=== PATIENT | male | born 1970 | race Caucasian/White ===

== ENCOUNTER 2020-11-16 10:40 | Emergency (ER) | payer BC ==
--- NOTE | 2020-11-16 12:19 | RAD REPORT ---
EXAM DESCRIPTION: CT - Abdomen Pelvis W Contrast - 11/16/2020 12:09 pm CLINICAL HISTORY: ABD PAIN COMPARISON: No comparisons TECHNIQUE: Axial [address] imaging of the abdomen and pelvis was performed without IV co ntrast. No oral contrast given All CT scans are performed using dose optimization technique as appropriate and may include automated exposure control or mA/KV adjustment according to patient size. FINDINGS: No suspicious findings in the lung bases. The liver, spleen, and pancreas show no suspicious findings for a non IV contrast study. Gallbladder and biliary tree are also without suspicious finding. No hydronephrosis or suspicious renal mass seen. Isodense masses and pyelonephritis cannot be exclud ed on non IV contrast imaging. No adrenal abnormalities. No bladder abnormalities. No dilated bowel loops or bowel wall thickening. No free air, free fluid or inflammatory stranding. No soft tissue mass or bulky lymphadenopathy. No acute bone finding. Degenerative gas in the L4-5 and L5-S1 disc spaces where there is also posteri or disc bulge and endplate spurring changes. Mild foraminal stenosis present at L4-5. Patient has a 3 centimeter fat only umbilical hernia with a 1.5 centimeter neck. No bowel involvement . No congestion or edema of the herniated fat. Patient also has a 5 centimeter diameter right inguina l hernia filled with fat. There is a small amount of fluid present. No bowel involvement. No abdomin al wall hematoma or mass. IMPRESSION: Right inguinal fat filled hernia 5 cm in diameter. No bowel involvement. Patient has a s mall fat only umbilical hernia 3 cm in size with a 1.5 cm neck. Nonacute findings detailed in the body of the report.
[2020-11-16 12:22] LABS: Absolute Lymphocytes (CBC) 1.4 K/uL (0.7-4.9); Basophils % 1.1 % (0-1.3); Hematocrit 45.7 % (39.6-49.0); Lymphocytes % 25.4 % (15.3-44.8); MPV 10.1 fL (7.6-11.3); RBC Red Blood Cell Count 5.01 M/uL (4.33-5.43)
--- NOTE | 2020-11-16 12:57 | EDPHYS ---
Physician Documentation [facility] Name: Jorge Dos Santos Age: 50 yrs Sex: Male : 1970 Arrival Date: 11/16/2020 Time: 10:44 Bed 23 Private MD: ED Physician Bc Cali HPI: 11/16 12:39 This 50 yrs old Male presents to ER via Ambulatory with complaints of kb Abdominal Pain. 12:39 The patient presents with abdominal pain right lower quadrant. Onset: The kb symptoms/episode began/occurred 5 day(s) ago. The symptoms do not radiate. Associated signs and symptoms: none. The symptoms are described as intermittent. Modifying factors: The symptoms are alleviated by nothing, the symptoms are aggravated by nothing. Severity of pain: At its worst the pain was moderate in the emergency department the pain has resolved. The patient has not experienced similar symptoms in the past. The patient has been recently seen by a physician: Dr. pop with similar presenting complaints, and was sent [facility] Emergency Department for further evaluation. Pt reports right groin/RLQ pain that started Th. Has been intermittent since then worse with straining. Historical: - Allergies: 11:08 No Known Allergies; ll1 - PMHx: 11:08 Hypertension; stage 3 kidney; Hypothyroidism; ll1 - PSHx: 11:08 ankle fx; Tonsillectomy; ll1 - Immunization history:: Flu vaccine is not up to date. - Social history:: Smoking status: Patient denies any tobacco usage or history of. ROS: 12:42 Constitutional: Negative for fever, chills, and weight loss, Cardiovascular: Negative kb for chest pain, palpitations, and edema, Respiratory: Negative for shortness of breath, cough, wheezing, and pleuritic chest pain, : Negative for injury, bleeding, discharge, and swelling, MS/Extremity: Negative for injury and deformity, Skin: Negative for injury, rash, and discoloration, Neuro: Negative for headache, weakness, numbness, tingling, and seizure. 12:42 Abdomen/GI: Positive for abdominal pain, Negative for nausea, vomiting, and diarrhea. Exam: 12:42 Constitutional: This is a well developed, well nourished patient who is awake, alert, kb and in no acute distress. Head/Face: Normocephalic, atraumatic. Respiratory: Respirations even and unlabored. No increased work of breathing, no retractions or nasal flaring. Abdomen/GI: Soft, non-tender. No distention Skin: Warm, dry with normal turgor. Normal color. MS/ Extremity: Pulses equal, no cyanosis. Neurovascular intact. Full, normal range of motion. Neuro: Awake and alert, GCS 15, oriented to person, place, time, and situation. Moves all extremities. Normal gait. Vital Signs: 11:04 BP 129 / 89; Pulse 64; Resp 17; Temp 98.7; Pulse Ox 98% ; Weight 104.33 kg; Height 5 ll1 ft. 10 in. (177.80 cm); Pain 02/20; 11:04 Body Mass Index 33.00 (104.33 kg, 177.80 cm) ll1 MDM: 11:52 Patient medically screened. kb 12:41 Data reviewed: vital signs, nurses notes. Data interpreted: Pulse oximetry: on room air kb is 98 %. Interpretation: normal. Counseling: I had a detailed discussion with the patient and/or guardian regarding: the historical points, exam findings, and any diagnostic results supporting the discharge/admit diagnosis, lab results, radiology results, the need for outpatient follow up, a family practitioner, to return to the emergency department if symptoms worsen or persist or if there are any questions or concerns that arise at home. ED course: Pain resolved at this time. Pt educated on hernias and need for follow up with general surgery for repair on outpatient basis. 11/16 11:49 Order name: Basic Metabolic Panel 11/16 11:49 Order name: CBC with Diff 11/16 11:49 Order name: CT Abd/Pelvis - IV Contrast Only; Complete Time: 12:42 11/16 11:50 Order name: Basic Metabolic Panel; Complete Time: 12:35 EDMS 11/16 11:50 Order name: CBC with Automated Diff; Complete Time: 12:56 EDMS 11/16 12:39 Order name: CREATININE WHOLE BLOOD; Complete Time: 12:39 EDMS 11/16 11:49 Order name: IV Saline Lock; Complete Time: 12:00 ss 11/16 11:49 Order name: Labs collected and sent; Complete Time: 12:00 ss Administered Medications: No medications were administered Disposition: 15:14 Co-signature as Attending Physician, Bc Cali MD. rn Disposition: 11/16/20 12:56 Discharged to Home. Impression: Inguinal hernia. - Condition is Stable. - Discharge Instructions: Inguinal Hernia, Adult, [id number]. - Medication Reconciliation Form, Thank You Letter, Antibiotic Education, Prescription Opioid Use form. - Follow up: Emergency Department; When: As needed; Reason: Worsening of condition. Follow up: Private Physician; When: 2 - 3 days; Reason: Recheck today's complaints, Continuance of care, Re-evaluation by your physician. Signatures: Dispatcher [employer] EDMS Kimberly Garcia, BUILDING TECH-C BUILDING TECH-Ckb Bc Cali MD MD rn Toya Waldrop RN RN Erick Doyle RN RN ll1 Corrections: (The following items were deleted from the chart) 13:04 12:56 11/16/2020 12:56 Discharged to Home. Impression: Inguinal hernia. Condition is ss Stable. Forms are Medication Reconciliation Form, Thank You Letter, Antibiotic Education, Prescription Opioid Use. Follow up: Emergency Department; When: As needed; Reason: Worsening of condition. Follow up: Private Physician; When: 2 - 3 days; Reason: Recheck today's complaints, Continuance of care, Re-evaluation by your physician. kb
--- NOTE | 2020-11-16 12:57 | ER ---
Nurse's Notes [facility] Name: Jorge Dos Santos Age: 50 yrs Sex: Male : 1970 Arrival Date: 11/16/2020 Time: 10:44 Bed 23 Private MD: Diagnosis: Inguinal hernia Presentation: 11/16 11:04 Chief complaint: Patient states: RLQ abd pain, 1 episode on . Today, RLQ pain ll1 has returned and is constant. Sent in by [employer] for r/o appy. Coronavirus screen: Client denies travel out of the [place] in the last 14 days. At this time, the client does not indicate any symptoms associated with coronavirus-19. Ebola Screen: Patient denies travel to an Ebola-affected area in the 21 days before illness onset. Initial Sepsis Screen: Does the patient meet any 2 criteria? No. Patient's initial sepsis screen is negative. Does the patient have a suspected source of infection? Yes: Acute abdominal pain. Risk Assessment: Do you want to hurt yourself or someone else? Patient reports no desire to harm self or others. Onset of symptoms was November 12, 2020. 11:04 Method Of Arrival: Ambulatory ll1 11:04 Acuity: WILIAN 3 ll1 Historical: - Allergies: 11:08 No Known Allergies; ll1 - PMHx: 11:08 Hypertension; stage 3 kidney; Hypothyroidism; ll1 - PSHx: 11:08 ankle fx; Tonsillectomy; ll1 - Immunization history:: Flu vaccine is not up to date. - Social history:: Smoking status: Patient denies any tobacco usage or history of. Screenin:59 Abuse screen: Denies threats or abuse. Denies injuries from another. Nutritional ss screening: No deficits noted. Tuberculosis screening: Never had TB. Fall Risk None identified. Assessment: 11:59 General: Appears uncomfortable, Behavior is calm, cooperative, Denies fever, feeling ss ill, fatigue, chills. Pain: Complains of pain in right lower quadrant Pain radiates to R groin Pain currently is 4 out of 10 on a pain scale. at worst was 9 out of 10 on a pain scale. Quality of pain is described as "pulling" Pain began "It started , but then it went away all weekend and while I was at work today, I was pulling something and it happened again." Is episodic. Neuro: Level of Consciousness is awake, alert, obeys commands, Oriented to person, place, time, situation. Cardiovascular: Capillary refill < 3 seconds is brisk in bilateral fingers. Respiratory: Airway is patent Respiratory effort is even, unlabored, Respiratory pattern is regular, symmetrical. GI: Abdomen is round non-distended, Bowel sounds present X 4 quads. Abd is soft and non tender X 4 quads. Patient currently denies diarrhea, nausea, vomiting. : Denies burning with urination, inability to void. EENT: Nares are clear Oral mucosa is moist. Derm: Skin is intact, is healthy with good turgor, Skin is dry, Skin is pink, warm \\T\\ dry. normal. Musculoskeletal: Circulation, motion, and sensation intact. Range of motion: intact in all extremities, Swelling absent. 12:02 Reassessment: Pt to CT at this time VIA wheelchair. 12:19 Reassessment: Pt back from CT. AWaiting results. Is resting comfortably in bed. ss Respirations even and unlabored. 12:43 Reassessment: Patient appears in no apparent distress at this time. Patient and/or ss family updated on plan of care and expected duration. Pain level reassessed. Patient is alert, oriented x 3, equal unlabored respirations, skin warm/dry/pink. 13:04 Reassessment: Patient appears in no apparent distress at this time. Vital Signs: 11:04 BP 129 / 89; Pulse 64; Resp 17; Temp 98.7; Pulse Ox 98% ; Weight 104.33 kg; Height 5 ll1 ft. 10 in. (177.80 cm); Pain 7/10; 11:04 Body Mass Index 33.00 (104.33 kg, 177.80 cm) ll1 ED Course: 10:44 Patient arrived in ED. mr 11:06 Triage completed. ll1 11:08 Arm band placed on Patient notified of wait time. ll1 11:48 [facility]ly [facility]C [facility] ss 11:52 Bc Cali MD is Attending Physician. kb 11:59 Patient has correct armband on for positive identification. Bed in low position. Call ss light in reach. Side rails up X 1. 12:01 Basic Metabolic Panel Sent. ss 12:01 CBC with Diff Sent. ss 12:01 Inserted saline lock: 20 gauge in right antecubital area, using aseptic technique. ss Blood collected. Patient maintains SpO2 saturation greater than 95% on room air. 12:09 CT Abd/Pelvis - IV Contrast Only In Process Unspecified. EDMS 12:19 Toya Waldrop, RN is Primary Nurse. ss 13:04 No provider procedures requiring assistance completed. IV discontinued, intact, ss bleeding controlled, No redness/swelling at site. Pressure dressing applied. Administered Medications: No medications were administered Outcome: 12:56 Discharge ordered by . kb 13:04 Discharged to home ambulatory. ss 13:04 Condition: improved 13:04 Discharge instructions given to patient, Instructed on discharge instructions, follow up and referral plans. Demonstrated understanding of instructions, follow-up care. 13:04 Patient left the ED. Signatures: Dispatcher [employer] EDTX Kimberly Garcia, MUFFLER TENDER-C MUFFLER TENDER-Eb Kali Bonny mr Toya Waldrop, RN RN Erick Guido RN RN ll1
[2020-11-16 13:21] VITALS: BP 129/89; TEMP 98.7; O2SAT 98
== END 2020-11-16 13:04 | disposition home or self-care (01) ==
LOC: ER 10:40
DX: K40.90 Unilateral inguinal hernia, without obstruction or gangrene, not specified as recurrent (principal); I12.9 Hypertensive chronic kidney disease with stage 1 through stage 4 chronic kidney disease, or unspecified chronic kidney disease; N18.30 Chronic kidney disease, stage 3 unspecified; E03.9 Hypothyroidism, unspecified
CPT/HCPCS: 85025; 80048; 36415; 82565; 74177; 99284; Q9967

== ENCOUNTER 2020-11-20 07:48 | Day surgery (SDC) | payer BC ==
--- NOTE | 2020-11-18 15:43 | RAD REPORT ---
EXAM DESCRIPTION: RAD - Chest Pa And Lat (2 Views) - 11/18/2020 3:25 pm CLINICAL HISTORY: Preop, pending hernia repair COMPARISON: Portable September 2003 2 TECHNIQUE: Frontal and lateral views of the chest were obtained. FINDINGS: The lungs are clear. Interstitial pattern matches comparison. Heart size is normal and ce ntral vasculature is within normal limits. No pleural effusion or pneumothorax seen. No acute bony finding noted. No aortic abnormality. IMPRESSION: No acute cardiopulmonary process. No significant change from comparison study.
--- NOTE | 2020-11-19 08:51 | EKG ---
Test Date: 2020-11-18 Test Time: 14:14:10 Weigher And Mixer: BRENDA MEASUREMENT RESULTS: Intervals: Rate: 61 LA: 204 QRSD: 92 QT: 398 QTc: 400 Clay: P: 53 LA: 204 QRS: 40 T: 26 INTERPRETIVE STATEMENTS: Normal sinus rhythm Normal ECG Compared to ECG 09/21/2013 14:56:23 Junctional rhythm no longer present Electronically Signed On 11-19-20 08:48:42 CDT by Wilberto Burnham
[2020-11-20] MEDS ORDERED: propofoL 200 MG/20 ML VIAL IV ONE (08:18)
[2020-11-20] MEDS ORDERED: MIDAZOLAM HCL 2 MG/2 ML INJ ONE (08:19)
[2020-11-20] MEDS ORDERED: dexAMETHasone 10 MG/ML VIAL ONE (08:19)
[2020-11-20] MEDS ORDERED: LIDOCAINE 2% MPF 5 ML VIAL ONE (08:19)
[2020-11-20] MEDS ORDERED: FENTANYL CITR 100 MCG/2 ML ONE (08:19)
[2020-11-20] MEDS ORDERED: KETOROLAC 30 MG/ML INJ ONE (08:19)
[2020-11-20] MEDS ORDERED: ROCURONIUM 50 MG/5 ML VIAL IV ONE (08:19)
[2020-11-20] MEDS ORDERED: ONDANSETRON 4 MG/2 ML VIAL ONE ×2 (08:20→11:20)
[2020-11-20] MEDS ORDERED: CEFAZOLIN/SWI 1gm 1 GM/10 ML SYR ONE (08:33)
[2020-11-20] MEDS ORDERED: Ringers Lactate 1,000 ML IV ONE ×2 (08:33→10:35)
[2020-11-20] MEDS ORDERED: CISATRACURIUM INJECTION 2 MG/ML (10 ML Vial) IV ONE ×2 (09:10→09:27)
[2020-11-20] MEDS: HYDROMORPHONE HCL 1 MG/ML INJ ONE ×2 (11:14→11:19)
[2020-11-20 11:18] VITALS: O2SAT 100
[2020-11-20] MEDS ORDERED: HYDROCODONE/APAP 7.5/325 MG TAB ONE (12:26)
[2020-11-20 13:32] VITALS: BP 135/99; TEMP 97.4
--- NOTE | 2020-11-20 20:56 | OP ---
Date of Procedure: 11/20/2020 Surgeon: Andrea Velasquez MD Traffic Workforce Representative: SRAVAN Lake. Preoperative Diagnosis: Umbilical hernia and right inguinal hernia. Postoperative Diagnosis: Umbilical hernia and right inguinal hernia. Procedure: Laparoscopic repair of umbilical hernia and repair of right inguinal hernia. Estimated Blood Loss: Minimal. Specimen: Hernia sac contents and cord lipoma. Anesthesia: General. Complications: None. Findings: As above. Disposition: The patient tolerated the procedure in stable condition and taken to Recovery in good g eneral condition. Procedure In Detail: The patient was brought to the OR and placed in supine position. General anest hesia begun. The patient was prepped and draped in the usual sterile fashion. Marcaine 0.5% was inf iltrated locally. A 15-blade was used to make the left lower quadrant incision. Subcutaneous tissue was divided. Fascia was identified and divided. #1 Vicryl stay suture was placed. Peritoneal cavi ty was entered with sharp and blunt dissection. A 12 mm trocar was placed into the peritoneal cavity under direct vision. Pneumoperitoneum was established and then one 5 mm trocar placed in the left l ower quadrant. Laparoscopy revealed a small hernia with preperitoneal fat in it and then a 4 cm inci demetrio curvilinear was made just to the right of the umbilicus. Subcutaneous tissue was divided. Carlos ia sac and contents were identified and dissected all the way down to the fascial defect, which was a pproximately 2 cm and all the contents and sac were excised and sent to Pathology. Then, Ventralex s mall size mesh was placed in the peritoneal cavity and the fascial defect was closed with #1 PDS figu re-of-eight suture. Laparoscopy was performed and then the tacker was used to secure the mesh to the preperitoneal surface. Right groin was examined and diagnostic laparoscopy revealed direct right in guinal hernia. Subsequently all trocars were removed under direct vision. Stay sutures were tied to each other to approximate the fascial defect. Subcutaneous wounds were irrigated. Bleeding was con trolled with cautery and 3-0 chromic was used to approximate the subcutaneous tissue and close the sk in. Sterile dressing was applied. Then, a 4 cm incision was made in the right groin between the pub ic tubercle and anterior iliac superior spine. Subcutaneous tissue was divided. Jerri fascia was i dentified and divided. Aponeurosis identified and mobilized inferiorly to expose shelving edge, then opened through the external ring. Ilioinguinal nerve was identified and retracted out of the field of dissection. Cord was mobilized and skeletonized. Cord lipoma was present. High ligation was don e of the cord lipoma with 2-0 chromic and excised and sent to Pathology as specimen. Medial to that was the indirect inguinal hernia, which was reduced back into the peritoneal cavity and the inguinal floor was reapproximated beginning at the internal ring by joining the conjoined tendon to the shelvi ng edge using a running 2-0 Prolene suture. Then Marlex mesh plug was placed in the internal ring an d secured with VersaTack stapler and then Onlay mesh was placed on the inguinal floor, secured medial ly to the pubic tubercle, superiorly to the conjoined tendon, inferiorly to the shelving edge, latera lly to each other. Then, cord structures and ilioinguinal nerve were placed back in anatomical locat ion. Then, 2-0 Prolene was used to close the aponeurosis and 3-0 chromic used to close Jerri's fasc ia as well as the skin. Sterile dressing was applied. The patient was awakened and taken to Recover y in good general condition. Discharge Note: The patient will go to Day Surgery and home when stable. Disposition: Home. Condition: Stable. Discharge Instructions: Resume home medications and diet. Activity as tolerated. No heavy lifting. Remove outer dressing in 2 days. Shower. Keep wound clean and dry. Keep Steri-Strips on at all t imes. Incentive spirometry. Scrotal support, abdominal binder, ice pack. Tylenol No. 3 one tablet p.o. q.4 p.r.n. pain. Follow up in my office in 10 days, call for appointme nt. EDDIE/EVITA Voice ID: [id number] Report ID: [id number]
== END 2020-11-20 13:21 | disposition home or self-care (01) ==
LOC: OR 07:48
PROVIDERS: ATTEND Surgery
PROC: 0YU50JZ Supplement Right Inguinal Region with Synthetic Substitute, Open Approach (ICD-10-PCS; principal; 2020-11-20 09:45)
PROC: 0WUF4JZ Supplement Abdominal Wall with Synthetic Substitute, Percutaneous Endoscopic Approach (ICD-10-PCS; 2020-11-20 09:45)
DX: K42.9 Umbilical hernia without obstruction or gangrene (principal); K40.90 Unilateral inguinal hernia, without obstruction or gangrene, not specified as recurrent; Z20.822 Contact with and (suspected) exposure to COVID-19
CPT/HCPCS: 93005; 88302; 71046; 49505; 49652; U0003; J2704; J2250; J3010; J1100; J1170; J0690; J7120 ×2; J2405 ×2

== ENCOUNTER 2022-12-30 09:07 | Day surgery (SDC) | payer BC ==
--- NOTE | 2022-12-28 10:03 | RAD REPORT ---
EXAM DESCRIPTION: RAD - Chest Pa And Lat (2 Views) - 12/28/2022 9:56 am CLINICAL HISTORY: Pre op pending hernia repair Chest pain. COMPARISON: Chest Pa And Lat (2 Views) dated 11/18/2020; CHEST SINGLE VIEW dated 09/21/2013 FINDINGS: The lungs are clear. The heart is normal in size. Mildly tortuous thoracic aorta. No displ aced fractures.
[2022-12-28 10:16] LABS: Absolute Lymphocytes (CBC) 1.5 K/uL (0.7-4.9); Hematocrit 46.7 % (39.6-49.0); Lymphocytes % 24.7 % (15.3-44.8); MCV 92.4 fL (80-100); MPV 9.3 fL (7.6-11.3); RBC Red Blood Cell Count 5.05 M/uL (4.33-5.43)
[2022-12-28 10:25] LABS: Potassium 4.9 mEq/L (3.5-5.1)
--- NOTE | 2022-12-28 15:17 | EKG ---
Test Date: 2022-12-28 Test Time: 09:43:17 Founder And Chief Executive Officer: LALITHA MEASUREMENT RESULTS: Intervals: Rate: 51 CA: 196 QRSD: 84 QT: 412 QTc: 379 Bourg: P: 30 CA: 196 QRS: 46 T: 69 INTERPRETIVE STATEMENTS: Sinus bradycardia Otherwise normal ECG Compared to ECG 11/18/2020 14:14:10 Sinus rhythm no longer present Electronically Signed On 12-28-22 15:17:24 CDT by James Martinez
[2022-12-30] MEDS ORDERED: NA CHLORIDE 0.9% 1,000 ML ONE (09:31)
[2022-12-30] MEDS: CEFAZOLIN SODIUM 1 GM/VIAL ONE ×2 (11:50→12:33)
[2022-12-30] MEDS: BUPIVACAINE 0.5% PF 10 ML VIAL ONE ×2 (11:51→12:57)
[2022-12-30] MEDS ORDERED: FENTANYL CITR 100 MCG/2 ML ONE (12:00)
[2022-12-30] MEDS ORDERED: LIDOCAINE 2% MPF 5 ML VIAL ONE (12:01)
[2022-12-30] MEDS ORDERED: dexAMETHasone 10 MG/ML VIAL ONE (12:01)
[2022-12-30] MEDS ORDERED: MIDAZOLAM HCL 2 MG/2 ML INJ ONE ×2 (12:01→15:00)
[2022-12-30] MEDS ORDERED: propofoL 200 MG/20 ML VIAL IV ONE (12:01)
[2022-12-30] MEDS ORDERED: ROCURONIUM 50 MG/5 ML VIAL IV ONE (12:01)
[2022-12-30] MEDS ORDERED: KETOROLAC 30 MG/ML INJ ONE (12:01)
[2022-12-30] MEDS ORDERED: ONDANSETRON 4 MG/2 ML VIAL ONE (12:28)
[2022-12-30] MEDS ORDERED: GLYCOPYRROLATE 0.2 MG/ML SYR ONE (12:47)
[2022-12-30] MEDS ORDERED: VECURONIUM 10 MG/VIAL IV ONE (13:43)
[2022-12-30] MEDS ORDERED: NS 0.9% VIAL 10 ML ONE (13:43)
[2022-12-30] MEDS ORDERED: Mastisol Adhesive Liq ONE (13:54)
--- NOTE | 2022-12-30 14:04 | P.OP ---
Date of Service: 12/30/22 Preop diagnosis: Ventral hernia Postop diagnosis: Same Procedure performed: Laparoscopic assisted repair of ventral hernia Surgeon: Andrea Velasquez MD Distribution Coordinator: Becca HINSON Estimated blood loss: Minimal Specimen: Hernia sac Findings: As above Anesthesia: General Complications: None Drains: None Fluids and blood products: Nonapplicable Disposition: Recovery room Operative note: Patient brought to the OR and placed in the supine position. General anesthesia begun. Patient prepped and draped in the usual sterile f ashion. Marcaine 0.5% infiltrated locally for postop pain control. 15 blade used to make a 1 cm left upper quadrant incision. Subcutaneous tissue divided. Bleeding controlled cautery. Fascia identified and divided. #1 Vicryl stay suture placed. Peritoneal cavity entered with sharp and blunt dissection. 5 mm trocar placed in the left lower quadrant under direct vision. Laparoscopy revealed a previous repair at the umbilicus. The mesh was in place with complete coverage of the previous hernia. However there was another hernia in the ventral region at the insertion of the falciform ligament. A 3 cm incision was made over the hernia itself. Subcu tissue divided hernia sac identified and excised from the fascial edges. Approximately a 3 cm defect remained. #1 PDS used to close the defect. Pneumoperitoneum reestablished. Bard balloon system oval shaped mesh placed and deployed in the standard fashion Sorber tack used to secure the mesh to the peritoneal surface with complete coverage of the hernia site. There was no evidence of bleeding or bowel injury appreciated. All trocars were removed under direct vision. Subcutaneous wounds irrigated and bleeding controlled with cautery. Stay sutures were tied to each other to reapproximate the fascial defect. 3-0 chromic was used to reapproximate subcutaneous tissue and close skin. Sterile dressing applied. Patient awakened and taken to recovery room in good general condition. CC: Dr. Alcaraz's office
[2022-12-30] MEDS: HYDROMORPHONE HCL 1 MG/ML INJ ONE ×4 (14:11→14:48)
[2022-12-30] MEDS ORDERED: HYDROCODONE/APAP 7.5/325 MG TAB PO PRN (14:14)
[2022-12-30] MEDS: MEPERIDINE HCL 50 MG/ML ONE ×3 (14:27→14:32)
[2022-12-30] MEDS ORDERED: HYDROMORPHONE HCL 1 MG/ML INJ ONE (15:00)
[2022-12-30 16:01] VITALS: BP 110/76; TEMP 97.5; O2SAT 97
[2022-12-30] MEDS ORDERED: HYDROCODONE/APAP 7.5/325 MG TAB ONE (16:37)
[2022-12-30] MEDS ORDERED: LORazepam 2 MG/ML VIAL IV ONE (17:00)
== END 2022-12-30 17:13 | disposition home or self-care (01) ==
LOC: OR 09:07
PROVIDERS: ATTEND Surgery
PROC: 0WUF4JZ Supplement Abdominal Wall with Synthetic Substitute, Percutaneous Endoscopic Approach (ICD-10-PCS; principal; 2022-12-30 11:00)
DX: K43.9 Ventral hernia without obstruction or gangrene (principal)
CPT/HCPCS: 93005; 85025; 80048; 36415; 88302; 71046; 49593; A4216; J2704; J2001; J2250 ×2; J3010; J1100; J2175; J1170 ×3; J2405; J7030; J0690